=== PATIENT | male | born 1995 | race Caucasian/White ===

== ENCOUNTER 2022-02-18 03:23 | Emergency (ER) | payer OTHER ==
[2022-02-18] MEDS ORDERED: KETOROLAC 30 MG/ML INJ ONE (05:07)
[2022-02-18] MEDS ORDERED: NA CHLORIDE 0.9% 1,000 ML ONE (05:07)
[2022-02-18] MEDS ORDERED: ONDANSETRON 4 MG/2 ML VIAL ONE (05:07)
[2022-02-18 05:12] LABS: Absolute Lymphocytes (CBC) 2.2 K/uL (0.7-4.9); Hematocrit 53.6 % (39.6-49.0); Lymphocytes % 46.1 % (15.3-44.8); MPV 9.2 fL (7.6-11.3)
[2022-02-18 05:18] LABS: Urine Blood Negative (Negative); Urine Glucose Negative (Negative); Urine Protein Negative (Negative); Urine pH 6.5 (5.0-7.0)
[2022-02-18 05:18] LABS: Albumin 4.5 g/dL (3.4-5.0); Bilirubin Direct 0.2 mg/dL (0-0.2); Bilirubin Total 0.7 mg/dL (0.2-1.0); Magnesium 2.5 mg/dL (1.8-2.4); Potassium 3.6 mmol/L (3.5-5.1); Protein, Total 7.7 g/dL (6.4-8.2); Troponin High Sensitivity 4.3 pg/mL (<58.9)
--- NOTE | 2022-02-18 07:10 | EKG ---
Test Date: 2022-02-18 Test Time: 03:47:32 [employer] Plant Dispatcher: MARIO MEASUREMENT RESULTS: Intervals: Rate: 70 WV: 150 QRSD: 100 QT: 352 QTc: 380 [place]: P: 71 WV: 150 QRS: 72 T: 75 INTERPRETIVE STATEMENTS: Normal sinus rhythm Normal ECG No previous ECG available for comparison Electronically Signed On 02-18-22 07:09:24 CDT by Amado Kaufman
--- NOTE | 2022-02-18 07:16 | ER ---
Nurse's Notes [facility] Name: Praveen Ly Age: 27 yrs Sex: Male : 1995 Arrival Date: 02/18/2022 Time: 03:29 Bed 18 Private MD: Diagnosis: Syncope Near;Unspecified injury of head, initial encounter;Pain in left lower leg-musculoskeletal pain Presentation: 02/18 03:41 Chief complaint: Patient states: I woke up to a Bryson horse in my left leg and now it kd3 hurts. I think something is wrong with it. when I woke up I felt dizzy and I think I passed out because I woke up and it feels like I hit my head on the door. Coronavirus screen: Vaccine status: Patient reports receiving the 2nd dose of the covid vaccine. Ebola Screen: No symptoms or risks identified at this time. Initial Sepsis Screen: Does the patient meet any 2 criteria? No. Patient's initial sepsis screen is negative. Does the patient have a suspected source of infection? No. Patient's initial sepsis screen is negative. Risk Assessment: Do you want to hurt yourself or someone else? Patient reports no desire to harm self or others. Onset of symptoms was February 18, 2022. 03:41 Method Of Arrival: Ambulatory kd3 03:41 Acuity: JEROMY 3 kd3 Triage Assessment: 03:45 Headache History: Denies prior headaches. General: Appears in no apparent distress. kd3 Behavior is calm, cooperative, appropriate for age. Pain: Pain currently is 3 out of 10 on a pain scale. Pain began suddenly, Also complains of no other associated symptoms. Neuro: Level of Consciousness is awake, alert, obeys commands, Oriented to person, place, time, situation. Cardiovascular: Patient's skin is warm and dry. Respiratory: Airway is patent Trachea midline Respiratory effort is even, unlabored, Respiratory pattern is regular, symmetrical. Historical: - Allergies: 03:46 No Known Allergies; kd3 - Home Meds: 03:46 Vyvanse oral once daily for attention-deficit hyperactivity disorder [Active]; kd3 - PMHx: 03:46 ADD; kd3 - PSHx: 03:46 None; kd3 - Immunization history:: Client reports receiving the 2nd dose of the Covid vaccine. - Social history:: Smoking status: unknown. Screenin:44 Abuse screen: Denies threats or abuse. Denies injuries from another. Nutritional kd3 screening: No deficits noted. Tuberculosis screening: No symptoms or risk factors identified. Fall Risk None identified. Assessment: 04:07 General: Appears in no apparent distress. Behavior is calm, cooperative, appropriate kd3 for age. Pain: Complains of pain in left leg. head ache. Vital Signs: 03:41 BP 124 / 80; Pulse 90; Resp 14; Pulse Ox 100% on R/A; Weight 77.11 kg; Height 5 ft. 10 kd3 in. (177.80 cm); 07:03 BP 130 / 72; Pulse 68; Resp 16; Pulse Ox 96% ; kd3 03:41 Body Mass Index 24.39 (77.11 kg, 177.80 cm) kd3 ED Course: 03:29 Patient arrived in ED. ja2 03:36 Gamal Winchester MD is Attending Physician. [facility] 03:41 Bernadine Jung, RN is Primary Nurse. kd3 03:44 Triage completed. kd3 03:46 Arm band placed on right wrist. kd3 03:48 Patient has correct armband on for positive identification. Bed in low position. Call kd3 light in reach. Side rails up X 1. monitoring manager on. Pulse ox on. NIBP on. 05:01 XRAY Chest (1 view) In Process Unspecified. EDMS 05:57 US Extremity Venous Unilateral Ltd In Process Unspecified. EDMS 06:08 CT Head Brain wo Cont In Process Unspecified. EDMS 06:08 CT Chest For PE Angio In Process Unspecified. EDMS 07:55 No provider procedures requiring assistance completed. IV discontinued, intact, ap3 bleeding controlled, No redness/swelling at site. Pressure dressing applied. Administered Medications: 05:11 Drug: NS 0.9% 1000 ml Route: IV; Rate: 1 bolus; Site: right antecubital; kd3 05:11 Drug: Ketorolac 30 mg Route: IVP; Site: right antecubital; kd3 07:51 Follow up: Response: No adverse reaction ap3 05:11 Drug: Zofran (Ondansetron) 4 mg Route: IVP; Site: right antecubital; kd3 07:51 Follow up: Response: No adverse reaction ap3 Outcome: 07:15 Discharge ordered by . indigo 07:55 Discharged to home ambulatory. ap3 07:55 Condition: good 07:55 Discharge instructions given to patient, Instructed on discharge instructions, follow up and referral plans. medication usage, Demonstrated understanding of instructions, follow-up care, medications, Prescriptions given X 1. 08:27 Patient left the ED. ap3 Signatures: Dispatcher [employer] EDWV Gamal Winchester MD MD cha Prokisch, Amanda RN RN ap3 Genie You Kyli RN RN kd3
--- NOTE | 2022-02-18 07:16 | EDPHYS ---
Physician Documentation [facility] Name: Praveen Ly Age: 27 yrs Sex: Male : 1995 Arrival Date: 02/18/2022 Time: 03:29 Bed 18 Private MD: CRYS Physician Gamal Winchester HPI: 02/18 04:43 This 27 yrs old Male presents to ER via Ambulatory with complaints of Leg indigo Pain, Fainting, Headache, Dizziness. 04:43 The patient presents with decreased range of motion, pain, that is acute. The indigo complaints affect the left calf. Context: The problem was sustained at home. Historical: - Allergies: 03:46 No Known Allergies; kd3 - Home Meds: 03:46 Vyvanse oral once daily for attention-deficit hyperactivity disorder [Active]; kd3 - PMHx: 03:46 ADD; kd3 - PSHx: 03:46 None; kd3 - Immunization history:: Client reports receiving the 2nd dose of the Covid vaccine. - Social history:: Smoking status: unknown. ROS: 04:47 Constitutional: Negative for fever, chills, and weight loss, Eyes: Negative for injury, indigo pain, redness, and discharge, ENT: Negative for injury, pain, and discharge, Neck: Negative for injury, pain, and swelling, Cardiovascular: Negative for chest pain, palpitations, and edema, Respiratory: Negative for shortness of breath, cough, wheezing, and pleuritic chest pain, Abdomen/GI: Negative for abdominal pain, nausea, vomiting, diarrhea, and constipation, Back: Negative for injury and pain, : Negative for injury, bleeding, discharge, and swelling, Skin: Negative for injury, rash, and discoloration, Neuro: Negative for headache, weakness, numbness, tingling, and seizure, Psych: Negative for depression, anxiety, suicide ideation, homicidal ideation, and hallucinations, Allergy/Immunology: Negative for hives, rash, and allergies, Endocrine: Negative for neck swelling, polydipsia, polyuria, polyphagia, and marked weight changes, Hematologic/Lymphatic: Negative for swollen nodes, abnormal bleeding, and unusual bruising. 04:47 MS/extremity: Positive for decreased range of motion, pain, tenderness, of the left calf. Exam: 04:47 Constitutional: This is a well developed, well nourished patient who is awake, alert, indigo and in no acute distress. Eyes: Pupils equal round and reactive to light, extra-ocular motions intact. Lids and lashes normal. Conjunctiva and sclera are non-icteric and not injected. Cornea within normal limits. Periorbital areas with no swelling, redness, or edema. ENT: Nares patent. No nasal discharge, no septal abnormalities noted. Tympanic membranes are normal and external auditory canals are clear. Oropharynx with no redness, swelling, or masses, exudates, or evidence of obstruction, uvula midline. Mucous membranes moist. Neck: Trachea midline, no thyromegaly or masses palpated, and no cervical lymphadenopathy. Supple, full range of motion without nuchal rigidity, or vertebral point tenderness. No Meningismus. Chest/axilla: Normal chest wall appearance and motion. Nontender with no deformity. No lesions are appreciated. Cardiovascular: Regular rate and rhythm with a normal S1 and S2. No gallops, murmurs, or rubs. Normal PMI, no JVD. No pulse deficits. Respiratory: Lungs have equal breath sounds bilaterally, clear to auscultation and percussion. No rales, rhonchi or wheezes noted. No increased work of breathing, no retractions or nasal flaring. Abdomen/GI: Soft, non-tender, with normal bowel sounds. No distension or tympany. No guarding or rebound. No evidence of tenderness throughout. Back: No spinal tenderness. No costovertebral tenderness. Full range of motion. Male : Normal genitalia with no discharge or lesions. Skin: Warm, dry with normal turgor. Normal color with no rashes, no lesions, and no evidence of cellulitis. MS/ Extremity: Pulses equal, no cyanosis. Neurovascular intact. Full, normal range of motion. Neuro: Awake and alert, GCS 15, oriented to person, place, time, and situation. Cranial nerves II-XII grossly intact. Motor strength 5/5 in all extremities. Sensory grossly intact. Cerebellar exam normal. Normal gait. Psych: Awake, alert, with orientation to person, place and time. Behavior, mood, and affect are within normal limits. 04:47 ECG was reviewed by the Attending Physician. Vital Signs: 03:41 BP 124 / 80; Pulse 90; Resp 14; Pulse Ox 100% on R/A; Weight 77.11 kg; Height 5 ft. 10 kd3 in. (177.80 cm); 07:03 BP 130 / 72; Pulse 68; Resp 16; Pulse Ox 96% ; kd3 03:41 Body Mass Index 24.39 (77.11 kg, 177.80 cm) kd3 MDM: 03:36 Patient medically screened. indigo 04:48 Differential diagnosis: tendonitis. Data reviewed: vital signs, nurses notes, lab test indigo result(s), EKG, radiologic studies, CT scan, doppler, plain films. Data interpreted: hall monitor: rate is 90 beats/min, rhythm is regular, Pulse oximetry: on room air. Test interpretation: by ED physician or midlevel provider: ECG, plain radiologic studies. Counseling: I had a detailed discussion with the patient and/or guardian regarding: the historical points, exam findings, and any diagnostic results supporting the discharge/admit diagnosis, lab results, radiology results, the need for outpatient follow up, for definitive care, 02/18 04:46 Order name: Basic Metabolic Panel; Complete Time: 07:14 [facility] 02/18 04:46 Order name: CBC with Diff; Complete Time: 07:14 [facility] 02/18 04:46 Order name: LFT's; Complete Time: 07:14 [facility] 02/18 04:46 Order name: Magnesium; Complete Time: 07:14 [facility] 02/18 04:46 Order name: Troponin HS; Complete Time: 07:14 indigo 02/18 05:19 Order name: Urine Dipstick-Ancillary; Complete Time: 07:14 EDMS 02/18 04:46 Order name: XRAY Chest (1 view) indigo 02/18 04:46 Order name: EKG; Complete Time: 04:47 indigo 02/18 04:46 Order name: US Extremity Venous Unilateral Ltd indigo 02/18 04:46 Order name: CT Head Brain wo Cont 02/18 04:46 Order name: CT Chest For PE Angio indigo 02/18 04:46 Order name: Cardiac monitoring; Complete Time: 05:01 indigo 02/18 04:46 Order name: EKG - Nurse/Tech; Complete Time: 05:01 indigo 02/18 04:46 Order name: IV Saline Lock; Complete Time: 05:01 indigo 02/18 04:46 Order name: Labs collected and sent; Complete Time: 05:00 indigo 02/18 04:46 Order name: O2 Per Protocol; Complete Time: 05:00 [facility] 02/18 04:46 Order name: O2 Sat Monitoring; Complete Time: 05:00 [facility] 02/18 04:46 Order name: Urine Dipstick-Ancillary (obtain specimen); Complete Time: 05:19 [facility] EC:47 Rate is 70 beats/min. Rhythm is regular. QRS [place] is Normal. [place] interval is normal. QRS indigo interval is normal. QT interval is normal. No Q waves. T waves are Normal. No ST changes noted. Clinical impression: Normal ECG and No evidence of ischemia. Interpreted by me. Reviewed by me. Administered Medications: 05:11 Drug: NS 0.9% 1000 ml Route: IV; Rate: 1 bolus; Site: right antecubital; kd3 05:11 Drug: Ketorolac 30 mg Route: IVP; Site: right antecubital; kd3 07:51 Follow up: Response: No adverse reaction ap3 05:11 Drug: Zofran (Ondansetron) 4 mg Route: IVP; Site: right antecubital; kd3 07:51 Follow up: Response: No adverse reaction ap3 Disposition Summary: 02/18/22 07:15 Discharge Ordered Location: Home indigo Problem: new indigo Symptoms: have improved indigo Condition: Stable indigo Diagnosis - Syncope Near indigo - Unspecified injury of head, initial encounter indigo - Pain in left lower leg - musculoskeletal pain indigo Followup: indigo - With: Private Physician - When: 2 - 3 days - Reason: Recheck today's complaints, Continuance of care, Re-evaluation by your physician Discharge Instructions: - Discharge Summary Sheet indigo - Head Injury, Adult indigo - Musculoskeletal Pain indigo - Near-Syncope indigo - Weakness indigo - Weakness, [id number] indigo Forms: - Medication Reconciliation Form indigo - Thank You Letter indigo - Antibiotic Education indigo - Prescription Opioid Use indigo Prescriptions: - Ibuprofen 600 mg Oral Tablet - take 1 tablet by ORAL route every 6 hours As needed take with food; 20 tablet; [facility] Refills: 0, Product Selection Permitted Signatures: Dispatcher [employer] Gamal Chaudhary MD MD cha Doucette, Kyli RN RN kd3 Catrina Arroyo RN ap3
--- NOTE | 2022-02-18 07:53 | RAD REPORT ---
EXAM DESCRIPTION: US - Extremity Venous Uni Ltd - 02/18/2022 5:55 am CLINICAL HISTORY: Pain COMPARISON: None. TECHNIQUE: Real-time sonographic evaluation of the left lower extremity deep venous system was perfo rmed. FINDINGS: Normal compressibility, flow augmentation, phasic flow and spontaneous flow is identified in the left lower extremity deep venous system. No intraluminal filling defects seen. IMPRESSION: No DVT in the left lower extremity.
--- NOTE | 2022-02-18 10:48 | RAD REPORT ---
EXAM DESCRIPTION: CT - Head Brain Wo Cont - 02/18/2022 6:52 am CLINICAL HISTORY: The patient is 27 years old and is Male; SYNCOPE TECHNIQUE: Axial computed tomography images of the head/brain without intravenous contrast. Sagitt al and coronal reformatted images were created and reviewed. This CT exam was performed using one o r more of the following dose reduction techniques: automated exposure control, adjustment of the mA and/or kV according to patient size, and/or use of iterative reconstruction technique. COMPARISON: No relevant prior studies available. FINDINGS: BRAIN: Unremarkable. The anders-white matter differentiation is preserved . No hemorrhag e. No significant white matter disease. No edema. No extra-axial fluid collections. VENTRICLES: Unremarkable. No ventriculomegaly. BONES/JOINTS: No acute fracture. SOFT TISSUES: Unremarkable. SINUSES: Unremarkable as visualized. No acute sinusitis. MASTOID AIR CELLS: Unremarkable as visualized. No mastoid effusion. ORBITS: Unremarkable as visualized. IMPRESSION: No acute intracranial findings. Electronically signed by: Kathy Dunn MD 02/18/2022 6:30 AM CDT Due to temporary technical issues with the PACS/Fluency reporting system, reports are being signed by the in house radiologist without review as a courtesy to ensure prompt reporting. The interpreting r adiologist is fully responsible for the content of the report.
--- NOTE | 2022-02-18 10:50 | RAD REPORT ---
EXAM DESCRIPTION: CT - Chest For Pe Angio - 02/18/2022 6:52 am CLINICAL HISTORY: The patient is 27 years old and is Male; DYSPNEA TECHNIQUE: Axial computed tomographic angiography images of the chest with intravenous contrast. S agittal and coronal reformatted images were created and reviewed. This CT exam was performed using one or more of the following dose reduction techniques: automated exposure control, adjustment of t he mA and/or kV according to patient size, and/or use of iterative reconstruction technique. MIP reconstructed images were created and reviewed. COMPARISON: No relevant prior studies available. FINDINGS: TRACHEA: The tracheobronchial tree is widely patent. PULMONARY ARTERIES: There are no obvious filling defects identified within the pulmonary arterie s to suggest pulmonary embolism. AORTA: No acute findings. No thoracic aortic aneurysm. LUNGS: Scarring within the lung apices is noted. The lungs are well-inflated and otherwise clear . PLEURAL SPACE: Unremarkable. No significant effusion. No pneumothorax. HEART: Unremarkable. No cardiomegaly. No significant pericardial effusion. No evidence of RV dysfunction. BONES/JOINTS: No acute fracture. No dislocation. SOFT TISSUES: Unremarkable. LYMPH NODES: Unremarkable. No enlarged lymph nodes. IMPRESSION: No evidence of pulmonary embolism. Electronically signed by: Kathy Dunn MD 02/18/2022 6:33 AM CDT Due to temporary technical issues with the PACS/Fluency reporting system, reports are being signed by the in house radiologist without review as a courtesy to ensure prompt reporting. The interpreting r adiologist is fully responsible for the content of the report.
--- NOTE | 2022-02-18 12:27 | RAD REPORT ---
EXAM DESCRIPTION: RAD - Chest Single View - 02/18/2022 4:59 am CLINICAL HISTORY: The patient is 27 years old and is Male; CHEST PAIN TECHNIQUE: Single view of the chest. COMPARISON: No relevant prior studies available. FINDINGS: Lungs: No pulmonary vascular congestion or consolidation. Pleural space: Unremarkable. No pneumothorax. Heart: Unremarkable. No cardiomegaly. Mediastinum: Unremarkable. Bones/joints: No acute fracture visualized. Upper abdomen: No free air in the visualized upper abdomen. IMPRESSION: No acute cardiopulmonary process identified. Electronically signed by: Apolonia Duarte MD 02/18/2022 5:53 AM CDT Due to temporary technical issues with the PACS/Fluency reporting system, reports are being signed by the in house radiologist without review as a courtesy to ensure prompt reporting. The interpreting r adiologist is fully responsible for the content of the report.
[2022-02-18 20:53] VITALS: BP 130/72; O2SAT 96
== END 2022-02-18 08:27 | disposition home or self-care (01) ==
LOC: ER 03:23
DX: S09.90XA Unspecified injury of head, initial encounter (principal); M79.662 Pain in left lower leg; F98.8 Other specified behavioral and emotional disorders with onset usually occurring in childhood and adolescence
CPT/HCPCS: 93005; 85025; 80048; 36415; 83735; 80076; 81003; 84484; 70450; 71275; 71045; 93971; Q9967; J7030; J2405

== ENCOUNTER 2022-05-17 14:46 | Emergency (ER) | payer OTHER ==
[2022-05-17] MEDS ORDERED: HYDROCODONE/APAP 5/325 MG TAB ONE (15:21)
[2022-05-17] MEDS ORDERED: dexAMETHasone 10 MG/ML VIAL ONE (15:21)
--- NOTE | 2022-05-17 15:29 | EDPHYS ---
Physician Documentation [facility] Name: Praveen Ly Age: 27 yrs Sex: Male : 1995 Arrival Date: 05/17/2022 Time: 14:48 Bed 7 Private MD: ED Physician Diogenes Stoddard HPI: 05/17 15:20 This 27 yrs old Male presents to ER via Wheelchair with complaints of Back Pain. en 15:20 The patient presents with pain that is acute. 27 yo M with remote h/o sciatica presents en to ED with right sided low back pain radiating to right foot x 5d.Mild tingling to right 4th and 5th toes. Able to weight bear with pain. Pt reports that he was [place] photos on the beach last week and jumped up. When he landed, he steffany his back. Did not feel immediate pain, but reports progressively worsening pain over past week. Tried left over flexeril and stretching without improvement. No F/C/N/V. No bowel or bladder incontinence. Historical: - Allergies: 15:02 No Known Allergies; ph - Home Meds: 16:01 Vyvanse Oral once daily for Attention-Deficit Hyperactivity Disorder [Active]; douglass - PMHx: 15:02 ADD; ph - Immunization history:: Adult Immunizations unknown. - Social history:: Smoking status: Patient denies any tobacco usage or history of. ROS: 15:20 Constitutional: Negative for fever, chills, and weight loss. en 15:20 Constitutional: Negative for body aches, chills, fatigue, fever. 15:20 Cardiovascular: Negative for chest pain. 15:20 Respiratory: Negative for shortness of breath. 15:20 Abdomen/GI: Negative for abdominal pain, nausea and vomiting. 15:20 Back: Positive for decreased range of motion, pain at rest, pain with movement, radiated pain, to R foot. 15:20 : Negative for urinary symptoms. 15:20 Neuro: Positive for tingling to R 4th and 5th toes. 15:20 All other systems are negative. en Exam: 15:20 Constitutional: Visibly uncomfortable 2/2 pain but nontoxic appearing en 15:20 Constitutional: The patient appears in no acute distress, alert, awake. 15:20 Neck: ROM/movement: is normal. 15:20 Cardiovascular: Rate: normal, Rhythm: regular, Pulses: no pulse deficits are appreciated, Heart sounds: normal, no murmur, no rub, no gallop. 15:20 Respiratory: the patient does not display signs of respiratory distress, Respirations: normal, Breath sounds: are clear throughout, no rales, rhonchi, no stridor, no wheezing. 15:20 Abdomen/GI: Inspection: abdomen appears normal, Bowel sounds: normal, in all quadrants, Palpation: abdomen is soft and non-tender, in all quadrants. 15:20 Back: DROM 2/2 pain, 5/5 PF/DF/EHL, no foot drop 2+ DP/PT pulses, +SLR on the right 25degrees. Antalgic gait. 15:20 Musculoskeletal/extremity: Pulses: are normal with no appreciated deficits, Sensation intact. 15:20 Neuro: normal peroneal nerve sensation, 2+ patellar reflexes. 15:20 Psych: Behavior/mood is pleasant, cooperative, Affect is calm. Vital Signs: 15:03 BP 123 / 75; Pulse 81; Resp 18; Temp 97.2; Pulse Ox 99% on R/A; Weight 77.11 kg; Height ph 5 ft. 10 in. (177.80 cm); 15:03 Body Mass Index 24.39 (77.11 kg, 177.80 cm) ph MDM: 15:03 Patient medically screened. en 15:20 Differential diagnosis: muscle strain, sciatica, DDD, herniated disc, no e/o cauda en equina. Data reviewed: vital signs, nurses notes, and as a result, I will discharge patient, spoke with pt regarding XR vs MRI. will give IM decadron and pain control in ED. Will refer to PCP for outpatient MRI should sxs persist. No new imaging required at this time. ER return precautions reviewed. Administered Medications: 15:21 Drug: Decadron (dexamethasone) 10 mg Route: IM; Site: right deltoid; 6 15:22 Drug: HYDROcodone-acetaminophen 5 mg-325 mg 1 tabs Route: PO; 6 Disposition: 16:44 Co-signature as Attending Physician, Diogenes Stoddard MD I agree with the assessment and kdr plan of care. Disposition Summary: 05/17/22 15:28 Discharge Ordered Location: Home en Problem: an acute exacerbation en Symptoms: are unchanged en Condition: Stable en Diagnosis - Sciatica en Followup: en - With: Rashi Lombardo MD - When: 1 - 2 days - Reason: Discharge Instructions: - Discharge Summary Sheet en - Sciatica, [id number] en Forms: - Medication Reconciliation Form en - Work release form ss - Thank You Letter en - Antibiotic Education en - Prescription Opioid Use en Prescriptions: - ketorolac 10 mg Oral tablet - take 1 tablet by ORAL route every 4-6 hours not to exceed 40 mg in 24hrs; 12 en tablet; Refills: 0, Product Selection Permitted - methocarbamol 750 mg Oral Tablet - take 1 tablet by ORAL route 3 times per day; 30 tablet; Refills: 0, Product en Selection Permitted Signatures: Diogenes Stoddard MD MD kdr Hall, Patricia RN RN Adrianne Acevedo RN RN [id number] Shirin Jenkins RN RN ha [place], Elizabeth, PA PA en
--- NOTE | 2022-05-17 15:29 | ER ---
Nurse's Notes [facility] Name: Praveen Ly Age: 27 yrs Sex: Male : 1995 Arrival Date: 05/17/2022 Time: 14:48 Bed 7 Private MD: Diagnosis: Sciatica Presentation: 05/17 15:03 Chief complaint: Patient states: Hx of slipped disc in L4-L5 region, c/o pain in low ph back that radiates to R leg, radiating pain started this morning. Coronavirus screen: Vaccine status: Patient reports receiving the 2nd dose of the covid vaccine. Ebola Screen: No symptoms or risks identified at this time. Initial Sepsis Screen: Does the patient meet any 2 criteria? Yes Does the patient have a suspected source of infection? No. Patient's initial sepsis screen is negative. Risk Assessment: Do you want to hurt yourself or someone else? Patient reports no desire to harm self or others. Onset of symptoms was May 17, 2022. 15:03 Acuity: JEROMY 4 ph 15:03 Method Of Arrival: Wheelchair Triage Assessment: 16:00 General: Appears in no apparent distress. Behavior is calm, cooperative. Pain: douglass Complains of pain in back. Musculoskeletal: Circulation, motion, and sensation intact. Reports pain in back Pain is 9 out of 10 on a pain scale. Historical: - Allergies: 15:02 No Known Allergies; ph - Home Meds: 16:01 Vyvanse Oral once daily for Attention-Deficit Hyperactivity Disorder [Active]; douglass - PMHx: 15:02 ADD; ph - Immunization history:: Adult Immunizations unknown. - Social history:: Smoking status: Patient denies any tobacco usage or history of. Screenin:00 Abuse screen: Denies threats or abuse. Denies injuries from another. Nutritional douglass screening: No deficits noted. Tuberculosis screening: No symptoms or risk factors identified. Fall Risk None identified. Vital Signs: 15:03 BP 123 / 75; Pulse 81; Resp 18; Temp 97.2; Pulse Ox 99% on R/A; Weight 77.11 kg; Height ph 5 ft. 10 in. (177.80 cm); 15:03 Body Mass Index 24.39 (77.11 kg, 177.80 cm) ph ED Course: 14:48 Patient arrived in ED. rg4 14:49 Thomas, Martina, PA is PHCP. en 14:49 Diogenes Stoddard MD is Attending Physician. en 15:08 Triage completed. ph 15:08 Arm band placed on Patient placed in an exam room. ph 15:21 Adrianne Whalen, RN is Primary Nurse. jh6 15:27 Rashi Lombardo MD is Referral Physician. en 16:00 Bed in low position. douglass 16:00 No provider procedures requiring assistance completed. Patient did not have IV access douglass during this emergency room visit. Administered Medications: 15:21 Drug: Decadron (dexamethasone) 10 mg Route: IM; Site: right deltoid; jh6 15:22 Drug: HYDROcodone-acetaminophen 5 mg-325 mg 1 tabs Route: PO; jh6 Medication: 16:01 VIS not applicable for this client. douglass Outcome: 15:28 Discharge ordered by . en 16:00 Discharged to home via wheelchair. douglass 16:00 Condition: good 16:00 Discharge instructions given to patient, Prescriptions given X 2. 16:01 Patient left the ED. douglass Signatures: Elsa Britt, RN RN Nestor Liudmila rg4 Adrianne Whalen, RN RN [facility] Shirin Jenkins RN RN Martina Staley PA PA en
[2022-05-17 16:38] VITALS: BP 123/75; TEMP 97.2; O2SAT 99
== END 2022-05-17 16:01 | disposition home or self-care (01) ==
LOC: ER 14:46
DX: M54.30 Sciatica, unspecified side (principal)
CPT/HCPCS: 96372; 99283; J1100